=== PATIENT | female | born 1960 | race Caucasian/White ===

== ENCOUNTER → 2017-05-29 | Outpatient (CLI) | payer OTHER ==
[~2017-05-29] MED LIST: ATOR10TA9 PO; HYDR25TA11 PO; LAMO200T49 PO; LEVO25TA4 PO; SERT100T5 PO; TRAZ100T15 PO
== END | disposition home or self-care (01) ==
LOC: CFH 15:12
PROVIDERS: ATTEND Nurse Practitioner
DX: Z12.31 Encounter for screening mammogram for malignant neoplasm of breast (principal)
CPT/HCPCS: G0202

== ENCOUNTER → 2017-06-08 | Outpatient (CLI) | payer OTHER | END | disposition home or self-care (01) | LOC: CFH 10:18 | PROVIDERS: ATTEND Nurse Practitioner | DX: N64.89 Other specified disorders of breast (principal) | CPT/HCPCS: 76641; G0206 ==

== ENCOUNTER → 2017-11-28 | Outpatient (CLI) | payer OTHER | END | disposition home or self-care (01) | LOC: CFH 12:21 | PROVIDERS: ATTEND Nurse Practitioner | DX: N18.3 Chronic kidney disease, stage 3 (moderate) (principal) | CPT/HCPCS: 76770 ==

== ENCOUNTER 2018-12-21 13:29 | Outpatient (CLI) | payer MEDICARE ==
[~2018-12-21 13:29] MED LIST changes: +SERT100T32 PO; -SERT100T5 PO; +TRAZ-137 PO; -TRAZ100T15 PO
== END 2018-12-21 23:59 | disposition home or self-care (01) ==
LOC: CFH 13:29
PROVIDERS: ATTEND Nurse Practitioner
DX: Z12.31 Encounter for screening mammogram for malignant neoplasm of breast (principal)
CPT/HCPCS: 77063; 77067

== ENCOUNTER → 2019-01-02 | Outpatient (CLI) | payer MEDICARE | END | disposition home or self-care (01) | LOC: CFH 13:59 | PROVIDERS: ATTEND Nurse Practitioner | DX: M85.88 Other specified disorders of bone density and structure, other site (principal) | CPT/HCPCS: 77080 ==

== ENCOUNTER → 2020-10-14 | Outpatient (CLI) | payer MEDICARE ==
[~2020-10-14] MED LIST changes: +HYDR-826 PO; -HYDR25TA11 PO; -TRAZ-137 PO; +TRAZ-175 PO
== END | disposition home or self-care (01) ==
LOC: CFH 11:52
PROVIDERS: ATTEND Nurse Practitioner
DX: Z12.31 Encounter for screening mammogram for malignant neoplasm of breast (principal)
CPT/HCPCS: 77063; 77067